=== PATIENT | female | born 1975 | race Caucasian/White ===

== ENCOUNTER 2016-03-10 19:49 | Emergency (ER) | payer OTHER, SELFPAY ==
[2016-03-10] MEDS ORDERED: NORCO, ANEXSIA 5/325MG TABLET (HYDROcodone/ACETAMINOPHEN) As Ordered ONE (21:07)
--- NOTE | 2016-03-10 22:10 | REPUSA ---
CLINICAL HISTORY: Abscess. TECHNIQUE: Realtime sonographic images are obtained through the left groin. FINDINGS: In the region of clinical concern left groin, note is made of a fluid collecting measuring 2.3 x 1.7 x 1.3 cm which may represent an abscess. No additional abnormalities are noted. No evidence of solid mass. IMPRESSION: Fluid collection in the left groin suspicious for an abscess. Consider correlation with CT with cont rast as clinically warranted. Thank you for your kind referral of this patient. We appreciate the opportunity to participate in thi s patient's care.
[2016-03-10] MEDS ORDERED: LIDOCAINE 1% MDV 20ML VIAL As Ordered ONE (22:31)
[2016-03-10] MEDS ORDERED: BACTRIM 160MG/800MG DS TAB As Ordered ONE (23:14)
--- NOTE | 2016-03-10 23:25 | EDDOCDS ---
Nurse's Notes [facility] Name: Onelia Oakes Age: 41 yrs Sex: Female : 1975 Arrival Date: 03/10/2016 Time: 19:49 Bed I7 / 29 Private MD: Jorge Alberto Hoskins Diagnosis: Cutaneous abscess of groin-LEFT Presentation: 03/10 19:55 Presenting complaint: Patient states: abscess near groin x 10 days. Painful. Adult ttb Sepsis Screening: The patient does not have new or worsening altered mentation. Patient's respiratory rate is less than 22. Systolic blood pressure is greater than 100. Patient has a qSOFA score of 0- Negative Sepsis Screen. Suicide/Homicide risk assessment- the patient denies having any suicidal and/or homicidal ideations and does not present with any other emotional, behavioral or mental health complaints. 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 Transition of care: patient was not received from another setting of care. 19:55 Acuity: LAURA Level 4 ttb 19:55 Method Of Arrival: Walkin/Carried/Asstd ttb Triage Assessment: 19:58 General: Appears in no apparent distress, well nourished, well groomed, Behavior is ttb appropriate for age, cooperative, pleasant. Pain: Location: groin 11/04. HIV screening NA for this visit Offered previously. Neurological: Level of Consciousness is awake, alert. Cardiovascular: Chest pain is denied. Respiratory: No deficits noted. Airway is patent Respiratory effort is even, unlabored, Denies cough, shortness of breath. GI: Denies nausea, vomiting, pain. : [facility]. Dx BV Denies burning with urination, urinary frequency, urgency. Derm: Skin is normal, pt stated abscess to left groin. Injury Description: No known injury. 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 metronidazole 500 mg Oral tab 2 times per day (Last dose: 03/10/2016 17:30) - PMHx: heart condition as child -- resolved; - PSHx: Tonsillectomy; Adenoidectomy; - Social history: Smoking status: Patient uses tobacco products, current every day smoker. Patient/guardian denies using alcohol, street drugs, No barriers to communication noted, The patient speaks fluent Yemeni, Speaks appropriately for age. - Family history: Not pertinent. - : The pt / caregiver states he / she is not on anticoagulants. Home medication list is obtained from the patient. - Exposure Risk Screening:: None identified. Screenin:11 Screening information is obtained from the patient. Fall risk: No risks identified. ms18 Assistance ADL's: requires no assistance with activities of daily living. Abuse/DV Screen: The patient / caregiver reports he/she is: not in a situation that causes fear, pain or injury. Nutritional screening: No deficits noted. Advance Directives: There is no living will. home support is adequate. Assessment: 21:11 General: Appears in no apparent distress, uncomfortable, Behavior is appropriate for ms18 age, cooperative. Pain: Location: left femoral area and left inguinal area Pain currently is 9 out of 10 on a pain scale. Neurological: No deficits noted. Respiratory: No deficits noted. Derm: Skin is pink, warm & dry. pt has a small bump to her L inguinal area. no redness noted. 23:22 General: Appears in no apparent distress, Behavior is cooperative. Pain: Location: left af2 inguinal area and left femoral area Pain currently is 3 out of 10 on a pain scale. Neurological: Level of Consciousness is awake, alert. Respiratory: No deficits noted. Derm: No deficits noted. Vital Signs: 19:52 BP 128 / 79; Pulse 91; Resp 18; Temp 98.9; Pulse Ox 100% ; Weight 63.5 kg; Height 5 ft. elp 1 in. (154.94 cm); Pain 9/10; 23:23 BP 111 / 71 RA Sitting; Pulse 75; Resp 18 S; Temp 97.2(O); Pulse Ox 97% on R/A; Pain af2 3/10; 19:52 Body Mass Index 26.45 (63.50 kg, 154.94 cm) [facility] Vitals: 19:50 Log In Time: March 10, 2016 at 19:48. [facility] ED Course: 19:50 Patient visited by Nani Rhoades PCA. [facility] 19:50 Jorge Alberto Hoskins is Private Physician. el 19:50 Jorge Alberto Hoskins is Private Physician. elp 19:50 Patient moved to Waiting elp 19:51 Patient visited by Nani Rhoades PCA. elp 19:51 Patient moved to Pre RCE elp 19:57 Triage Initiated ttb 20:00 Patient visited by Jane Bowles, SAMPSON. ttb 20:54 Patient moved to Triage 2 jmb 20:59 Bowen Demarco R[facility]-C [facility] ck7 20:59 Santosh Howard DO is Attending Physician. ck7 20:59 Patient visited by Bowen Demarco RPA-C. ck7 21:02 Patient visited by Teresa Espino PCA. rs6 21:09 Patient moved to TR2 jmb 21:11 The patient / caregiver is instructed regarding the plan of care and ED course. Patient ms18 has correct armband on for positive identification. Property :Personal belongings accompany Pt. 21:11 No IV's were initiated during this patient's visit. No procedures done that require ms18 assistance. 21:41 Patient visited by Bowen Demarco RPA-C. ck7 22:13 Patient visited by Bowen Demarco RPA-C. ck7 22:25 [facility] Payment Agreement was scanned into [employer] and attached to record. ks16 22:25 [employer] Returned. EDMS 22:29 Patient moved to I ajs 22:44 Patient visited by Bowen Demarco RPA-C. ck7 23:12 Wound Culture - Most Extremities Sent. af2 23:14 Patient visited by Bowen Demarco RPA-C. ck7 23:15 Jorge Alberto Hoskins is Referral Physician. ck7 23:18 Patient visited by Olamide Williamson,SAMPSON. af2 Administered Medications: 21:08 Drug: HYDROcodone-acetaminophen 1 tabs [hydrocodone 5 mg-acetaminophen 325 mg tablet (1 ms18 tabs)] Route: PO; 22:39 Follow up: Response: No Adverse Reaction ms18 23:12 Drug: Lidocaine 10 ml [lidocaine 10 mg/mL (1 %) injection solution (10 mL)] {Note: af2 admin by PA.} Route: Infiltration; 23:15 Drug: Trimethoprim-Sulfamethoxazole 1 tabs [sulfamethoxazole 800 mg-trimethoprim 160 mg af2 tablet (1 tabs)] Route: PO; Order Results: Radiology Order: US Abd Limited Test: US Abd Limited REASON FOR EXAMINATION: R/O LEFT GROIN ABSCESS V LYMPH NODE; ; CLINICAL HISTORY: Abscess.; ; TECHNIQUE: Realtime sonographic images are obtained through the left groin.; ; FINDINGS:; In the region of clinical concern left groin, note is made of a fluid collecting measuring 2.3 x 1.7; x 1.3 cm which may represent an abscess.; ; No additional abnormalities are noted. No evidence of solid mass.; ; IMPRESSION:; Fluid collection in the left groin suspicious for an abscess. Consider correlation with CT with cont; rast as clinically warranted.; ; ; Thank you for your kind referral of this patient. We appreciate the opportunity to participate in thi; s patient's care.; ; Outcome: 23:16 Discharge ordered by Provider. ck7 23:23 Discharge Assessment: Patient awake, alert and oriented x 3. No cognitive and/or af2 functional deficits noted. Patient verbalized understanding of disposition instructions. patient administered narcotics - no. The following High Risk Discharge criteria are identified: None. Discharged to home ambulatory. Condition: stable. Discharge instructions given to patient, Instructed on discharge instructions, follow up and referral plans. medication usage, no driving heavy equipment, no drinking with medication, Demonstrated understanding of instructions, medications, Pt was receptive of discharge instructions/ teaching. No special radiology studies were completed. 23:25 Patient left the ED. af2 Signatures: Dispatcher [employer] EDTX Esther Chamorro Christopher, LISA-C RPA-Cck7 Jane Bowles RN RN Nani Leon, CIRCUIT RECORDER CIRCUIT RECORDER Chemo LorenzRN RN Bernie Alejandra,SAMPSON RN ms18 Teresa Espino, CIRCUIT RECORDER CIRCUIT RECORDER rs6 Olamide Williamson RN RN af2 Deloris Barajas, Reg Reg ks16 MTDD
--- NOTE | 2016-03-10 23:25 | EDDOCDS ---
Physician Documentation [facility] Name: Onelia Oakes Age: 41 yrs Sex: Female : 1975 Arrival Date: 03/10/2016 Time: 19:49 Bed I7 / 29 Private MD: Jorge Alberto Hoskins Disposition: 03/10/16 23:16 Discharged to Home/Self Care. Impression: Cutaneous abscess of groin - LEFT. - Condition is Stable. - Discharge Instructions: Abscess. - Prescriptions for [place] 5- 325 mg Oral Tablet - take 1 tablet by ORAL route every 6 hours As needed MDD: 4 tabs; 6 tablet. Bactrim DS 800- 160 mg Oral Tablet - take 1 tablet by ORAL route every 12 hours for 10 days; 20 tablet. - Medication Reconciliation, Local Pharmacy Hours form. - Follow up: Jorge Alberto Hoskins; When: 2 - 3 days; Reason: Recheck today's complaints, Continuance of care. - Problem is new. - Symptoms have improved. - Notes: USE MEDICATIONS INSTRUTCED, FOLLOW UP WITH YOUR PRIMARY DOCTOR, RETURN TO THE ER IF THE SYMPTOMS WORSEN OR BECOME CONCERNING Historical: - Allergies: PENICILLINS; - Home Meds: 1. metronidazole 500 mg Oral tab 2 times per day (Last dose: 03/10/2016 17:30) - PMHx: heart condition as child -- resolved; - PSHx: Tonsillectomy; Adenoidectomy; - Social history: Smoking status: Patient uses tobacco products, current every day smoker. Patient/guardian denies using alcohol, street drugs, No barriers to communication noted, The patient speaks fluent Indonesian, Speaks appropriately for age. - Family history: Not pertinent. - : The pt / caregiver states he / she is not on anticoagulants. Home medication list is obtained from the patient. - Exposure Risk Screening:: None identified. 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 1 in. (154.94 cm); Pain 9/10; 23:23 BP 111 / 71 RA Sitting; Pulse 75; Resp 18 S; Temp 97.2(O); Pulse Ox 97% on R/A; Pain af2 3/10; 19:52 Body Mass Index 26.45 (63.50 kg, 154.94 cm) elp Procedures: 23:14 I & D: Incision and drainage was performed for an abscess of the groin Prepped with ck7 CHLORPREP. Anesthetized with 1 ml's 1% Lidocaine. Incised with 18 G NEEDLE. Drained moderate amount purulent fluid. bloody fluid. the patient tolerated the procedure well. MDM: 21:05 HYDROcodone-acetaminophen 5 mg-325 mg 1 tabs PO once ordered. ck7 21:06 [employer] Ordered. EDMS 22:24 Financial registration complete. [email or web address] 22:25 [facility] Payment Agreement was scanned into [employer] and attached to record. ks16 22:28 [employer] Reviewed. ck7 22:37 Lidocaine 10 mg/mL (1 %) 10 ml Infiltration once; to bedside ordered. ck7 23:10 Trimethoprim-Sulfamethoxazole 160 mg-800 mg (DS) 1 tabs PO once ordered. ck7 23:12 Wound Culture - Most Extremities Ordered. EDMS Administered Medications: 21:08 Drug: HYDROcodone-acetaminophen 1 tabs [hydrocodone 5 mg-acetaminophen 325 mg tablet (1 ms18 tabs)] Route: PO; 22:39 Follow up: Response: No Adverse Reaction ms18 23:12 Drug: Lidocaine 10 ml [lidocaine 10 mg/mL (1 %) injection solution (10 mL)] {Note: af2 admin by PA.} Route: Infiltration; 23:15 Drug: Trimethoprim-Sulfamethoxazole 1 tabs [sulfamethoxazole 800 mg-trimethoprim 160 mg af2 tablet (1 tabs)] Route: PO; Signatures: Dispatcher [employer] EDMS Bowen Demarco, RPA-C RPA-Cck7 Jane Bowles RN RN ttb Bernie Lancaster RN RN ms18 Olamide Williamson RN RN af2 Deloris Barajas, Reg Reg ks16 The chart was reviewed and I authenticate all verbal orders and agree with the evaluation and treatment provided.Attachments: 22:25 [facility] Payment Agreement [email or web address] MTDD
--- NOTE | 2016-03-13 00:25 | EDDOCDS ---
Physician Documentation [facility] Name: Onelia Oakes Age: 41 yrs Sex: Female : 1975 Arrival Date: 03/10/2016 Time: 19:49 Bed I7 / 29 Private MD: Jorge Alberto Hoskins Disposition: 03/10/16 23:16 Discharged to Home/Self Care. Impression: Cutaneous abscess of groin - LEFT. - Condition is Stable. - Discharge Instructions: Abscess. - Prescriptions for [place] 5- 325 mg Oral Tablet - take 1 tablet by ORAL route every 6 hours As needed MDD: 4 tabs; 6 tablet. Bactrim DS 800- 160 mg Oral Tablet - take 1 tablet by ORAL route every 12 hours for 10 days; 20 tablet. - Medication Reconciliation, Local Pharmacy Hours form. - Follow up: Jorge Alberto Hoskins; When: 2 - 3 days; Reason: Recheck today's complaints, Continuance of care. - Problem is new. - Symptoms have improved. - Notes: USE MEDICATIONS INSTRUTCED, FOLLOW UP WITH YOUR PRIMARY DOCTOR, RETURN TO THE ER IF THE SYMPTOMS WORSEN OR BECOME CONCERNING Historical: - Allergies: PENICILLINS; - Home Meds: 1. metronidazole 500 mg Oral tab 2 times per day (Last dose: 03/10/2016 17:30) - PMHx: heart condition as child -- resolved; - PSHx: Tonsillectomy; Adenoidectomy; - Social history: Smoking status: Patient uses tobacco products, current every day smoker. Patient/guardian denies using alcohol, street drugs, No barriers to communication noted, The patient speaks fluent Frisian, Speaks appropriately for age. - Family history: Not pertinent. - : The pt / caregiver states he / she is not on anticoagulants. Home medication list is obtained from the patient. - Exposure Risk Screening:: None identified. 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 1 in. (154.94 cm); Pain 9/10; 23:23 BP 111 / 71 RA Sitting; Pulse 75; Resp 18 S; Temp 97.2(O); Pulse Ox 97% on R/A; Pain af2 310; 19:52 Body Mass Index 26.45 (63.50 kg, 154.94 cm) elp Procedures: 23:14 I & D: Incision and drainage was performed for an abscess of the groin Prepped with ck7 CHLORPREP. Anesthetized with 1 ml's 1% Lidocaine. Incised with 18 G NEEDLE. Drained moderate amount purulent fluid. bloody fluid. the patient tolerated the procedure well. MDM: 21:05 HYDROcodone-acetaminophen 5 mg-325 mg 1 tabs PO once ordered. ck7 21:06 US Abd [employer] Ordered. EDMS 22:24 Financial registration complete. [email or web address] 22:25 [facility] Payment Agreement was scanned into [employer] and attached to record. ks16 22:28 [employer] Reviewed. ck7 22:37 Lidocaine 10 mg/mL (1 %) 10 ml Infiltration once; to bedside ordered. ck7 23:10 Trimethoprim-Sulfamethoxazole 160 mg-800 mg (DS) 1 tabs PO once ordered. ck7 23:12 Wound Culture - Most Extremities Ordered. EDMS 03/11 08:05 T-Sheet-- Draft Copy was scanned into [employer] and attached to record. [facility] Administered Medications: 03/10 21:08 Drug: HYDROcodone-acetaminophen 1 tabs [hydrocodone 5 mg-acetaminophen 325 mg tablet (1 ms18 tabs)] Route: PO; 22:39 Follow up: Response: No Adverse Reaction ms18 23:12 Drug: Lidocaine 10 ml [lidocaine 10 mg/mL (1 %) injection solution (10 mL)] {Note: af2 admin by PA.} Route: Infiltration; 23:15 Drug: Trimethoprim-Sulfamethoxazole 1 tabs [sulfamethoxazole 800 mg-trimethoprim 160 mg af2 tablet (1 tabs)] Route: PO; Signatures: Dispatcher [employer] EDNC Bowen Demarco, NITA RPA-Cck7 Jane Bowles RN RN ttb Bernie Lancaster RN RN ms18 Olamide Williamson RN RN af2 Deloris Barajas, Reg Reg [facility] Gissel Brand [facility] The chart was reviewed and I authenticate all verbal orders and agree with the evaluation and treatment provided.Attachments: 22:25 [facility] Payment Agreement [email or web address] 03/11 08:05 T-Sheet-- Draft Copy se Chart Complete MTDD
--- NOTE | 2016-03-13 00:25 | EDDOCDS ---
Physician Documentation [facility] Name: Onelia Oakes Age: 41 yrs Sex: Female : 1975 Arrival Date: 03/10/2016 Time: 19:49 Bed I7 / 29 Private MD: Jorge Alberto Hoskins Disposition: 03/10/16 23:16 Discharged to Home/Self Care. Impression: Cutaneous abscess of groin - LEFT. - Condition is Stable. - Discharge Instructions: Abscess. - Prescriptions for [place] 5- 325 mg Oral Tablet - take 1 tablet by ORAL route every 6 hours As needed MDD: 4 tabs; 6 tablet. Bactrim DS 800- 160 mg Oral Tablet - take 1 tablet by ORAL route every 12 hours for 10 days; 20 tablet. - Medication Reconciliation, Local Pharmacy Hours form. - Follow up: Jorge Alberto Hoskins; When: 2 - 3 days; Reason: Recheck today's complaints, Continuance of care. - Problem is new. - Symptoms have improved. - Notes: USE MEDICATIONS INSTRUTCED, FOLLOW UP WITH YOUR PRIMARY DOCTOR, RETURN TO THE ER IF THE SYMPTOMS WORSEN OR BECOME CONCERNING Historical: - Allergies: PENICILLINS; - Home Meds: 1. metronidazole 500 mg Oral tab 2 times per day (Last dose: 03/10/2016 17:30) - PMHx: heart condition as child -- resolved; - PSHx: Tonsillectomy; Adenoidectomy; - Social history: Smoking status: Patient uses tobacco products, current every day smoker. Patient/guardian denies using alcohol, street drugs, No barriers to communication noted, The patient speaks fluent Czech, Speaks appropriately for age. - Family history: Not pertinent. - : The pt / caregiver states he / she is not on anticoagulants. Home medication list is obtained from the patient. - Exposure Risk Screening:: None identified. 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 1 in. (154.94 cm); Pain 9/10; 23:23 BP 111 / 71 RA Sitting; Pulse 75; Resp 18 S; Temp 97.2(O); Pulse Ox 97% on R/A; Pain af2 310; 19:52 Body Mass Index 26.45 (63.50 kg, 154.94 cm) elp Procedures: 23:14 I & D: Incision and drainage was performed for an abscess of the groin Prepped with ck7 CHLORPREP. Anesthetized with 1 ml's 1% Lidocaine. Incised with 18 G NEEDLE. Drained moderate amount purulent fluid. bloody fluid. the patient tolerated the procedure well. MDM: 21:05 HYDROcodone-acetaminophen 5 mg-325 mg 1 tabs PO once ordered. ck7 21:06 [employer] Abd [employer] Ordered. EDMS 22:24 Financial registration complete. [email or web address] 22:25 [facility] Payment Agreement was scanned into [employer] and attached to record. ks16 22:28 [employer] Reviewed. ck7 22:37 Lidocaine 10 mg/mL (1 %) 10 ml Infiltration once; to bedside ordered. ck7 23:10 Trimethoprim-Sulfamethoxazole 160 mg-800 mg (DS) 1 tabs PO once ordered. ck7 23:12 Wound Culture - Most Extremities Ordered. EDMS 03/11 08:05 T-Sheet-- Draft Copy was scanned into [employer] and attached to record. [facility] Administered Medications: 03/10 21:08 Drug: HYDROcodone-acetaminophen 1 tabs [hydrocodone 5 mg-acetaminophen 325 mg tablet (1 ms18 tabs)] Route: PO; 22:39 Follow up: Response: No Adverse Reaction ms18 23:12 Drug: Lidocaine 10 ml [lidocaine 10 mg/mL (1 %) injection solution (10 mL)] {Note: af2 admin by PA.} Route: Infiltration; 23:15 Drug: Trimethoprim-Sulfamethoxazole 1 tabs [sulfamethoxazole 800 mg-trimethoprim 160 mg af2 tablet (1 tabs)] Route: PO; Signatures: Dispatcher [employer] EDCA Bowen Demarco, NITA RPA-Cck7 Jane Bowles RN RN ttb Bernie Lancaster RN RN ms18 Olamide Williamson RN RN af2 Deloris Barajas, Reg Reg [facility] Gissel Brand [facility] The chart was reviewed and I authenticate all verbal orders and agree with the evaluation and treatment provided.Attachments: 22:25 [facility] Payment Agreement [email or web address] 03/11 08:05 T-Sheet-- Draft Copy se Chart Complete MTDD
--- NOTE | 2016-03-13 00:25 | EDDOCDS ---
Nurse's Notes [facility] Name: Onelia Oakes Age: 41 yrs Sex: Female : 1975 Arrival Date: 03/10/2016 Time: 19:49 Bed I7 / 29 Private MD: Jorge Alberto Hoskins Diagnosis: Cutaneous abscess of groin-LEFT Presentation: 03/10 19:55 Presenting complaint: Patient states: abscess near groin x 10 days. Painful. Adult ttb Sepsis Screening: The patient does not have new or worsening altered mentation. Patient's respiratory rate is less than 22. Systolic blood pressure is greater than 100. Patient has a qSOFA score of 0- Negative Sepsis Screen. Suicide/Homicide risk assessment- the patient denies having any suicidal and/or homicidal ideations and does not present with any other emotional, behavioral or mental health complaints. Status: Patient is not a service advocate contact or dependent. Transition of care: patient was not received from another setting of care. 19:55 Acuity: LAURA Level 4 ttb 19:55 Method Of Arrival: Walkin/Carried/Asstd ttb Triage Assessment: 19:58 General: Appears in no apparent distress, well nourished, well groomed, Behavior is ttb appropriate for age, cooperative, pleasant. Pain: Location: groin 11/04. HIV screening NA for this visit Offered previously. Neurological: Level of Consciousness is awake, alert. Cardiovascular: Chest pain is denied. Respiratory: No deficits noted. Airway is patent Respiratory effort is even, unlabored, Denies cough, shortness of breath. GI: Denies nausea, vomiting, pain. : [facility]. Dx BV Denies burning with urination, urinary frequency, urgency. Derm: Skin is normal, pt stated abscess to left groin. Injury Description: No known injury. 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 metronidazole 500 mg Oral tab 2 times per day (Last dose: 03/10/2016 17:30) - PMHx: heart condition as child -- resolved; - PSHx: Tonsillectomy; Adenoidectomy; - Social history: Smoking status: Patient uses tobacco products, current every day smoker. Patient/guardian denies using alcohol, street drugs, No barriers to communication noted, The patient speaks fluent Hong Konger, Speaks appropriately for age. - Family history: Not pertinent. - : The pt / caregiver states he / she is not on anticoagulants. Home medication list is obtained from the patient. - Exposure Risk Screening:: None identified. Screenin:11 Screening information is obtained from the patient. Fall risk: No risks identified. ms18 Assistance ADL's: requires no assistance with activities of daily living. Abuse/DV Screen: The patient / caregiver reports he/she is: not in a situation that causes fear, pain or injury. Nutritional screening: No deficits noted. Advance Directives: There is no living will. home support is adequate. Assessment: 21:11 General: Appears in no apparent distress, uncomfortable, Behavior is appropriate for ms18 age, cooperative. Pain: Location: left femoral area and left inguinal area Pain currently is 9 out of 10 on a pain scale. Neurological: No deficits noted. Respiratory: No deficits noted. Derm: Skin is pink, warm & dry. pt has a small bump to her L inguinal area. no redness noted. 23:22 General: Appears in no apparent distress, Behavior is cooperative. Pain: Location: left af2 inguinal area and left femoral area Pain currently is 3 out of 10 on a pain scale. Neurological: Level of Consciousness is awake, alert. Respiratory: No deficits noted. Derm: No deficits noted. Vital Signs: 19:52 BP 128 / 79; Pulse 91; Resp 18; Temp 98.9; Pulse Ox 100% ; Weight 63.5 kg; Height 5 ft. elp 1 in. (154.94 cm); Pain 9/10; 23:23 BP 111 / 71 RA Sitting; Pulse 75; Resp 18 S; Temp 97.2(O); Pulse Ox 97% on R/A; Pain af2 3/10; 19:52 Body Mass Index 26.45 (63.50 kg, 154.94 cm) [facility] Vitals: 19:50 Log In Time: March 10, 2016 at 19:48. [facility] ED Course: 19:50 Patient visited by Nani Rhoades PCA. [facility] 19:50 Jorge Alberto Hoskins is Private Physician. el 19:50 Jorge Alberto Hoskins is Private Physician. elp 19:50 Patient moved to Waiting elp 19:51 Patient visited by Nani Rhoades PCA. elp 19:51 Patient moved to Pre RCE elp 19:57 Triage Initiated ttb 20:00 Patient visited by Jane Bowles RN. ttb 20:54 Patient moved to Triage 2 jmb 20:59 [facility] ck[facility] 20:59 Santosh Howard DO is Attending Physician. ck7 20:59 Patient visited by Bowen Demarco RPA-C. ck7 21:02 Patient visited by Teresa Espino PCA. rs6 21:09 Patient moved to TR2 jmb 21:11 The patient / caregiver is instructed regarding the plan of care and ED course. Patient ms18 has correct armband on for positive identification. Property :Personal belongings accompany Pt. 21:11 No IV's were initiated during this patient's visit. No procedures done that require ms18 assistance. 21:41 Patient visited by Bowen Demarco RPA-C. ck7 22:13 Patient visited by Bowen Demarco RPA-C. ck7 22:25 [facility] Payment Agreement was scanned into [employer] and attached to record. ks16 22:25 [employer] Returned. EDMS 22:29 Patient moved to I ajs 22:44 Patient visited by Bowen Demarco RPA-C. ck7 23:12 Wound Culture - Most Extremities Sent. af2 23:14 Patient visited by Bowen Demarco RPA-C. ck7 23:15 Jorge Alberto Hoskins is Referral Physician. ck7 23:18 Patient visited by Olamide Williamson,SAMPSON. af2 03/11 08:05 T-Sheet-- Draft Copy was scanned into [employer] and attached to record. [facility] Administered Medications: 03/10 21:08 Drug: HYDROcodone-acetaminophen 1 tabs [hydrocodone 5 mg-acetaminophen 325 mg tablet (1 ms18 tabs)] Route: PO; 22:39 Follow up: Response: No Adverse Reaction ms18 23:12 Drug: Lidocaine 10 ml [lidocaine 10 mg/mL (1 %) injection solution (10 mL)] {Note: af2 admin by PA.} Route: Infiltration; 23:15 Drug: Trimethoprim-Sulfamethoxazole 1 tabs [sulfamethoxazole 800 mg-trimethoprim 160 mg af2 tablet (1 tabs)] Route: PO; Order Results: Radiology Order: US Abd Limited Test: US Abd Limited REASON FOR EXAMINATION: R/O LEFT GROIN ABSCESS V LYMPH NODE; ; CLINICAL HISTORY: Abscess.; ; TECHNIQUE: Realtime sonographic images are obtained through the left groin.; ; FINDINGS:; In the region of clinical concern left groin, note is made of a fluid collecting measuring 2.3 x 1.7; x 1.3 cm which may represent an abscess.; ; No additional abnormalities are noted. No evidence of solid mass.; ; IMPRESSION:; Fluid collection in the left groin suspicious for an abscess. Consider correlation with CT with cont; rast as clinically warranted.; ; ; Thank you for your kind referral of this patient. We appreciate the opportunity to participate in thi; s patient's care.; ; Outcome: 23:16 Discharge ordered by Provider. ck7 23:23 Discharge Assessment: Patient awake, alert and oriented x 3. No cognitive and/or af2 functional deficits noted. Patient verbalized understanding of disposition instructions. patient administered narcotics - no. The following High Risk Discharge criteria are identified: None. Discharged to home ambulatory. Condition: stable. Discharge instructions given to patient, Instructed on discharge instructions, follow up and referral plans. medication usage, no driving heavy equipment, no drinking with medication, Demonstrated understanding of instructions, medications, Pt was receptive of discharge instructions/ teaching. No special radiology studies were completed. 23:25 Patient left the ED. af2 Signatures: Dispatcher [employer] EDMS Esther Chamorro Christopher, RPA-C RPA-Cck7 Jane Bowles, RN RN Nani Leno, JEWELRY SALES REPRESENTATIVE JEWELRY SALES REPRESENTATIVE Chemo Lorenz RN RN jmb Smith, Mallory, RN RN ms18 Teresa Espino, JEWELRY SALES REPRESENTATIVE JEWELRY SALES REPRESENTATIVE rs6 Olamide Williamson RN RN af2 Deloris Barajas, Reg Reg ks16 Gissel Brand Chart Complete MTDD
== END 2016-03-10 23:25 | disposition home or self-care (01) ==
LOC: M ED 19:49
DX: L02.214 Cutaneous abscess of groin (principal); Z90.89 Acquired absence of other organs; F17.200 Nicotine dependence, unspecified, uncomplicated; Z79.899 Other long term (current) drug therapy; Z88.0 Allergy status to penicillin

== ENCOUNTER 2018-03-25 08:47 | Emergency (ER) | payer OTHER, SELFPAY ==
[~2018-03-25] VITALS: Ht 154.9 cm; Wt 64.2 kg
[2018-03-25] MEDS ORDERED: PANTOPRAZOLE 40MG INJ (PROTONIX) (C9113) IV ONE (09:30)
[2018-03-25] MEDS ORDERED: NS 1,000 ML IV ONE (09:30)
[2018-03-25 09:46] LABS: BASO # 0.1 10^3/uL (0.0-0.2); BASO % 0.4 % (0.0-1.0); EOS # 0.5 10^3/uL (0.0-0.50); EOS % 2.5 % (0.0-3.0); HEMATOCRIT 46.8 % (36.0-47.0); HEMOGLOBIN 15.5 g/dl (12.0-15.5); LYMPH # 2.3 10^3/uL (1.5-4.5); LYMPH % 12.5 % (24.0-44.0); MEAN CORPUSCULAR HEMOGLOBIN 31.4 pg (27.0-33.0); MEAN CORPUSCULAR HGB CONC 33.1 g/dl (32.0-36.5); MEAN CORPUSCULAR VOLUME 94.9 fl (80.0-96.0); MONO # 1.3 10^3/uL (0.0-0.8); MONO % 6.7 % (0.0-5.0); NEUTROPHILS # 14.4 10^3/uL (1.8-7.7); NEUTROPHILS % 77.4 % (36.0-66.0); PLATELET COUNT, AUTOMATED 278 10^3/uL (150-450); RED BLOOD COUNT 4.93 10^6/uL (4.00-5.40); WHITE BLOOD COUNT 18.6 10^3/uL (4.0-10.0)
[2018-03-25 10:15] LABS: ALBUMIN 3.7 GM/DL (3.2-5.2); ALT/SGPT 26 U/L (12-78); BILIRUBIN,DIRECT 0.1 MG/DL (0.0-0.2); BILIRUBIN,TOTAL 0.5 MG/DL (0.2-1.0); BLOOD UREA NITROGEN 10 MG/DL (7-18); CALCIUM LEVEL 8.3 MG/DL (8.5-10.1); CARBON DIOXIDE LEVEL 28 MEQ/L (21-32); CHLORIDE LEVEL 105 MEQ/L (98-107); CREATININE FOR GFR 0.73 MG/DL (0.55-1.30); GLOMERULAR FILTRATION RATE > 60.0 (>58); GLUCOSE, FASTING 86 MG/DL (70-100); LIPASE 651 U/L (73-393); POTASSIUM SERUM 3.8 MEQ/L (3.5-5.1); SODIUM LEVEL 140 MEQ/L (136-145); TOTAL PROTEIN 7.1 GM/DL (6.4-8.2)
[2018-03-25] MEDS ORDERED: ISOVUE-370 76% 100ML VIAL (Q9967) As Ordered ONE (10:21)
--- NOTE | 2018-03-25 10:49 | REP ---
Clinical: Acute periumbilical pain. Technique: Axial contrast enhanced images from the lung bases to the pubic symphysis with coronal and sagittal re-formations. 100 ml Isovue 370 intravenous contrast material administered without complication. Findings: Mucosal thickening and pericolonic stranding involves the mid to distal transverse colon with associated diverticula is most compatible with acute diverticulitis. No bowel obstruction. No free air to suggest perforation. No drainable collection/abscess. Diffuse diverticulosis noted throughout the colon. Normal terminal ileum and appendix identified in the right lower quadrant. Liver demonstrates innumerable sub centimeter hypodensities likely representing cysts. Spleen, pancreas, gallbladder, bilateral adrenal glands and kidneys are normal. Pelvis demonstrates normal bladder and age-appropriate uterus/adnexa. Mild/moderate retroperitoneal adenopathy is nonspecific but may warrant followup. Abdominal aorta and vasculature without aneurysm. Musculoskeletal structures are intact. Impression: 1. Findings most compatible with diverticulitis involving the mid to distal transverse colon. Follow-up colonoscopy may be warranted to exclude further pathology. Diffuse diverticular disease noted throughout the colon. 2. Mildly prominent adenopathy primarily involving the retroperitoneum is nonspecific and may warrant followup examination. 3. Innumerable sub centimeter hepatic hypodensities are too small to characterize. Findings likely represent cysts and may warrant ultrasound follow-up. Electronically Signed by Missael Cunningham MD 03/25/2018 10:40 A
[2018-03-25] MEDS ORDERED: FLAG500T PO (10:56)
[2018-03-25] MEDS ORDERED: CIPR-249 PO (10:56)
[2018-03-25] MEDS ORDERED: ONDA4TAB6 PO (10:58)
[2018-03-25 11:02] VITALS: BP 104/70
--- NOTE | 2018-03-26 13:41 | ED PDOC ---
Post-Departure Follow-Up dr padron faxed formal reading of ct abd/p for fu Raven Gross MD Mar 26, 2018 13:41
== END 2018-03-25 11:06 | disposition home or self-care (01) ==
LOC: M ED 08:47
DX: K57.32 Diverticulitis of large intestine without perforation or abscess without bleeding (principal); R74.8 Abnormal levels of other serum enzymes; Z88.0 Allergy status to penicillin; F17.210 Nicotine dependence, cigarettes, uncomplicated
CPT/HCPCS: 74177; 80048; 80076; 81001; 81025; 83690; 85025; 87086; 96361; 96374; 99284; C9113; Q9967

== ENCOUNTER → 2018-04-08 | Outpatient (CLI) | payer OTHER ==
[~2018-04-08] MED LIST: CIPR-249 PO; FLAG500T PO; ONDA4TAB6 PO
[2018-04-08 09:26] LABS: HEMATOCRIT 46.8 % (36.0-47.0); HEMOGLOBIN 15.7 g/dl (12.0-15.5); MEAN CORPUSCULAR HEMOGLOBIN 31.8 pg (27.0-33.0); MEAN CORPUSCULAR HGB CONC 33.5 g/dl (32.0-36.5); MEAN CORPUSCULAR VOLUME 94.9 fl (80.0-96.0); PLATELET COUNT, AUTOMATED 298 10^3/uL (150-450); RED BLOOD COUNT 4.93 10^6/uL (4.00-5.40); WHITE BLOOD COUNT 10.6 10^3/uL (4.0-10.0)
--- NOTE | 2018-04-08 09:44 | ECGEPIP ---
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
[2018-04-08 09:59] LABS: ALBUMIN 3.6 GM/DL (3.2-5.2); ALT/SGPT 28 U/L (12-78); BILIRUBIN,TOTAL 0.2 MG/DL (0.2-1.0); BLOOD UREA NITROGEN 15 MG/DL (7-18); CALCIUM LEVEL 8.4 MG/DL (8.5-10.1); CARBON DIOXIDE LEVEL 29 MEQ/L (21-32); CHLORIDE LEVEL 106 MEQ/L (98-107); CHOLESTEROL LEVEL 194 MG/DL (<200); CHOLESTEROL RISK RATIO 4.974 (<5); CREATININE FOR GFR 0.74 MG/DL (0.55-1.30); GLOMERULAR FILTRATION RATE > 60.0 (>58); GLUCOSE, FASTING 88 MG/DL (70-100); HDL CHOLESTEROL 39 MG/DL (>40); LDL CHOLESTEROL 132 MG/DL (<100); NON-HDL-C 155 MG/DL; POTASSIUM SERUM 4.5 MEQ/L (3.5-5.1); SODIUM LEVEL 139 MEQ/L (136-145); TOTAL PROTEIN 6.7 GM/DL (6.4-8.2); TRIGLYCERIDES LEVEL 113 MG/DL (<150)
--- NOTE | 2018-04-08 10:37 | REP ---
Chest two views HISTORY: COPD Comparison: 03/12/2011 The lungs are clear. The heart is normal in size. The pulmonary vasculature is normal in appearance. The bony structure is intact. IMPRESSION: No acute disease. Electronically Signed by John Villalpando MD 04/08/2018 10:29 A
[2018-04-08 10:57] LABS: HEMOGLOBIN A1c 5.4 %
== END ==
LOC: M LAB 08:29
PROVIDERS: ATTEND Family Medicine
DX: J44.9 Chronic obstructive pulmonary disease, unspecified (principal)

== ENCOUNTER 2019-07-28 06:14 | Emergency (ER) | payer OTHER ==
[~2019-07-28] VITALS: Ht 157.5 cm; Wt 63.6 kg
[2019-07-28] MEDS ORDERED: PANTOPRAZOLE 40MG VIAL (C9113 PER 1) IV ONE (06:45)
[2019-07-28] MEDS ORDERED: NS 1,000 ML IV ONE (06:45)
[2019-07-28 06:50] LABS: BASO # 0.1 10^3/uL (0.0-0.2); BASO % 0.6 % (0.0-1.0); EOS # 0.4 10^3/uL (0.0-0.5); EOS % 3.8 % (0.0-3.0); HEMATOCRIT 45.9 % (36.0-47.0); HEMOGLOBIN 15.6 g/dl (12.0-15.5); LYMPH # 2.1 10^3/uL (1.5-5.0); LYMPH % 22.2 % (24.0-44.0); MEAN CORPUSCULAR HEMOGLOBIN 31.3 pg (27.0-33.0); MEAN CORPUSCULAR VOLUME 92.2 fl (80.0-96.0); MONO # 0.9 10^3/uL (0.0-0.8); MONO % 9.2 % (0.0-5.0); NEUTROPHILS % 63.6 % (36.0-66.0); PLATELET COUNT, AUTOMATED 283 10^3/uL (150-450); RED BLOOD COUNT 4.98 10^6/uL (4.00-5.40); WHITE BLOOD COUNT 9.5 10^3/uL (4.0-10.0)
[2019-07-28 07:15] LABS: BLOOD UREA NITROGEN 20 MG/DL (7-18); CALCIUM LEVEL 8.1 MG/DL (8.5-10.1); CARBON DIOXIDE LEVEL 24 MEQ/L (21-32); CHLORIDE LEVEL 110 MEQ/L (98-107); CREATININE FOR GFR 0.71 MG/DL (0.55-1.30); GLOMERULAR FILTRATION RATE > 60.0 (>58); GLUCOSE, FASTING 102 MG/DL (70-100); SODIUM LEVEL 139 MEQ/L (136-145)
--- NOTE | 2019-07-28 07:22 | REP ---
Clinical: Acute chest pain . Comparison: 04/08/2018 . Findings: The mediastinum and cardiac silhouette are stable and within normal limits for portable technique. The lung gutierrez are clear without acute consolidation, effusion, or pneumothorax. Skeletal structures are intact. Impression: No acute cardiopulmonary process appreciated. Electronically Signed by Missael Cunningham MD 07/28/2019 07:14 A
[2019-07-28 08:15] VITALS: BP 103/71
[2019-07-28] MEDS ORDERED: PROT1TAB2 PO (08:16)
[2019-07-28] MEDS ORDERED: ONDA4TAB6 PO (08:16)
--- NOTE | 2019-07-28 18:38 | ECGEPIP ---
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
== END 2019-07-28 08:50 | disposition home or self-care (01) ==
LOC: M ED 06:14
DX: R11.2 Nausea with vomiting, unspecified (principal); R07.9 Chest pain, unspecified; I45.10 Unspecified right bundle-branch block
CPT/HCPCS: 71045; 80048; 84484; 85025; 85379; 93005; 93041; 94760; 96361; 96374; 99285; C9113

== ENCOUNTER 2020-07-02 16:45 | Emergency (ER) | payer OTHER ==
[~2020-07-02] VITALS: Ht 157.5 cm; Wt 68.7 kg
[~2020-07-02 16:45] MED LIST changes: +PROT1TAB2 PO
[2020-07-02] MEDS ORDERED: PANTOPRAZOLE 40MG VIAL (C9113 PER 1) IV ONE (17:10)
[2020-07-02] MEDS ORDERED: NS 500 ML IV ONE (17:10)
[2020-07-02] MEDS ORDERED: GI COCKTAIL 50ML BTL(HYOSCYAMINE/MAALOX/LIDOCAINE VISCOUS)(1:3:1) PO ONE (17:10)
[2020-07-02 17:39] LABS: BASO # 0.1 10^3/uL (0.0-0.2); BASO % 0.5 % (0.0-1.0); EOS # 0.4 10^3/uL (0.0-0.5); EOS % 2.2 % (0.0-3.0); HEMATOCRIT 46.6 % (36.0-47.0); HEMOGLOBIN 15.8 g/dl (12.0-15.5); LYMPH # 3.3 10^3/uL (1.5-5.0); LYMPH % 19.2 % (24.0-44.0); MEAN CORPUSCULAR HEMOGLOBIN 31.7 pg (27.0-33.0); MEAN CORPUSCULAR HGB CONC 33.9 g/dl (32.0-36.5); MEAN CORPUSCULAR VOLUME 93.6 fl (80.0-96.0); MONO # 1.4 10^3/uL (0.0-0.8); MONO % 8.3 % (2.0-8.0); NEUTROPHILS # 11.9 10^3/uL (1.5-8.5); NEUTROPHILS % 69.4 % (36.0-66.0); PLATELET COUNT, AUTOMATED 268 10^3/uL (150-450); RED BLOOD COUNT 4.98 10^6/uL (4.00-5.40); WHITE BLOOD COUNT 17.1 10^3/uL (4.0-10.0)
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
[2020-07-02 18:04] LABS: ALBUMIN 3.8 GM/DL (3.2-5.2); ALT/SGPT 28 U/L (12-78); BILIRUBIN,DIRECT 0.2 MG/DL (0.0-0.2); BILIRUBIN,TOTAL 0.5 MG/DL (0.2-1.0); BLOOD UREA NITROGEN 13 MG/DL (7-18); CALCIUM LEVEL 8.7 MG/DL (8.5-10.1); CARBON DIOXIDE LEVEL 24 MEQ/L (21-32); CHLORIDE LEVEL 109 MEQ/L (98-107); CK-MB VALUE MASS 1.1 NG/ML (<3.6); CPK CREATINE PHOSPHOKINASE 65 U/L (26-192); CREATININE FOR GFR 0.67 MG/DL (0.55-1.30); GLOMERULAR FILTRATION RATE > 60.0 (>58); GLUCOSE, FASTING 84 MG/DL (70-100); LIPASE 179 U/L (73-393); MB/CK RELATIVE INDEX 1.69 (< OR =4); POTASSIUM SERUM 3.8 MEQ/L (3.5-5.1); SODIUM LEVEL 139 MEQ/L (136-145); TOTAL PROTEIN 7.1 GM/DL (6.4-8.2); TROPONIN I < 0.02 NG/ML (< 0.10)
[2020-07-02] MEDS ORDERED: ISOVUE-370 76% 100ML VIAL As Ordered ONE (18:10)
--- NOTE | 2020-07-02 19:08 | REPVR ---
PROCEDURE INFORMATION: Exam: CT Abdomen And Pelvis With Contrast Exam date and time: 07/02/2020 6:26 PM Age: 45 years old Clinical indication: Abdominal pain; Localized; Upper; Additional info: Upper abdominal pain; Leukocytosis; R/O diverticulitis TECHNIQUE: Imaging protocol: Computed tomography of the abdomen and pelvis with contrast. Radiation optimization: All CT scans at this facility use at least one of these dose optimization techniques: automated exposure control; mA and/or kV adjustment per patient size (includes targeted exams where dose is matched to clinical indication); or iterative reconstruction. Contrast material: ISOVUE 370; Contrast volume: 100 ml; Contrast route: INTRAVENOUS (IV); COMPARISON: CT ABD/PEL W/IV CONTRAST ONLY 03/25/2018 10:21 AM FINDINGS: Liver: Multiple hypodense lesions in the liver with the largest measuring 8 mm in the right hepatic lobe, most likely a cyst. Other hypodense lesions are too small to be characterized. Gallbladder and bile ducts: Normal. No calcified stones. No ductal dilation. Pancreas: Normal. No ductal dilation. Spleen: Normal. No splenomegaly. Adrenal glands: Normal. No mass. Kidneys and ureters: Normal. No hydronephrosis. Stomach and bowel: Unremarkable. No obstruction. No mucosal thickening. Appendix: No evidence of appendicitis. Intraperitoneal space: Unremarkable. No free air. No significant fluid collection. Vasculature: Unremarkable. No abdominal aortic aneurysm. Lymph nodes: Unremarkable. No enlarged lymph nodes. Urinary bladder: Unremarkable as visualized. Reproductive: Unremarkable as visualized. Bones/joints: Unremarkable. No acute fracture. Soft tissues: Unremarkable. IMPRESSION: No acute abdominal or pelvic abnormality. Electronically signed by: Elvis Anderson On 07/02/2020 19:08:43 PM
[2020-07-02] MEDS ORDERED: CARA1TAB6 PO (19:40)
[2020-07-02] MEDS ORDERED: PROT1TAB2 PO (19:40)
[2020-07-02 19:45] VITALS: BP 105/71
--- NOTE | 2020-07-03 10:02 | ECGEPIP ---
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
== END 2020-07-02 19:55 | disposition home or self-care (01) ==
LOC: M ED 16:45
DX: I45.19 Other right bundle-branch block (principal); K29.70 Gastritis, unspecified, without bleeding; F17.200 Nicotine dependence, unspecified, uncomplicated; Z88.0 Allergy status to penicillin
CPT/HCPCS: 74019; 74177; 80048; 80076; 82550; 82553; 83690; 84484; 85025; 93005; 93041; 96361; 96374; 99284; C9113; Q9967

== ENCOUNTER → 2020-08-16 | Outpatient (CLI) | payer OTHER ==
[~2020-08-16] MED LIST changes: +CARA1TAB6 PO; +E-Z-GAS II EFFERVESCENT PACKET (SODIUM BICARB./CITRIC ACID/SIMETHICONE) As Ordered ONE; +E-Z-HD 98% w/w 340GM SUSP BTL As Ordered ONE; +E-Z-PAQUE 96% w/w SUSP 176GM BTL As Ordered ONE
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
== END ==
LOC: M RAD 07:34
PROVIDERS: ATTEND Family Medicine
DX: K28.9 Gastrojejunal ulcer, unspecified as acute or chronic, without hemorrhage or perforation (principal); R10.9 Unspecified abdominal pain; K44.9 Diaphragmatic hernia without obstruction or gangrene

== ENCOUNTER → 2020-08-26 | Outpatient (CLI) | payer OTHER ==
[~2020-08-26] MED LIST changes: -E-Z-GAS II EFFERVESCENT PACKET (SODIUM BICARB./CITRIC ACID/SIMETHICONE) As Ordered ONE; -E-Z-HD 98% w/w 340GM SUSP BTL As Ordered ONE; -E-Z-PAQUE 96% w/w SUSP 176GM BTL As Ordered ONE
[2020-08-26 09:40] LABS: HEMATOCRIT 50.5 % (36.0-47.0); HEMOGLOBIN 16.6 g/dl (12.0-15.5); MEAN CORPUSCULAR HEMOGLOBIN 31.3 pg (27.0-33.0); MEAN CORPUSCULAR HGB CONC 32.9 g/dl (32.0-36.5); MEAN CORPUSCULAR VOLUME 95.3 fl (80.0-96.0); PLATELET COUNT, AUTOMATED 292 10^3/uL (150-450); WHITE BLOOD COUNT 11.4 10^3/uL (4.0-10.0)
[2020-08-26 10:25] LABS: ALT/SGPT 48 U/L (12-78); BILIRUBIN,TOTAL 0.6 MG/DL (0.2-1.0); BLOOD UREA NITROGEN 16 MG/DL (7-18); CALCIUM LEVEL 8.5 MG/DL (8.5-10.1); CARBON DIOXIDE LEVEL 28 MEQ/L (21-32); CHLORIDE LEVEL 105 MEQ/L (98-107); CHOLESTEROL LEVEL 220 MG/DL (<200); CHOLESTEROL RISK RATIO 5.238 (<5); CREATININE FOR GFR 0.72 MG/DL (0.55-1.30); GLOMERULAR FILTRATION RATE > 60.0 (>58); GLUCOSE, FASTING 82 MG/DL (70-100); HDL CHOLESTEROL 42 MG/DL (>40); LDL CHOLESTEROL 154 MG/DL (<100); NON-HDL-C 178 MG/DL; POTASSIUM SERUM 4.1 MEQ/L (3.5-5.1); SODIUM LEVEL 138 MEQ/L (136-145); TOTAL 25(OH) VITAMIN D 27.2 NG/ML (30.0-100.0); TOTAL PROTEIN 7.4 GM/DL (6.4-8.2); TRIGLYCERIDES LEVEL 119 MG/DL (<150)
== END ==
LOC: M LAB 08:21
PROVIDERS: ATTEND Family Medicine
DX: D64.9 Anemia, unspecified (principal); R53.83 Other fatigue; E03.9 Hypothyroidism, unspecified

== ENCOUNTER 2021-02-07 13:13 | Emergency (ER) | payer OTHER ==
[~2021-02-07] VITALS: Ht 157.5 cm; Wt 65.5 kg
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
[2021-02-07] MEDS ORDERED: ACETAMINOPHEN 325 MG TAB PO ONE (17:15)
[2021-02-07] MEDS ORDERED: KETOROLAC TROMETHAMINE 10 MG TAB PO ONE (18:05)
[2021-02-07] MEDS ORDERED: KETO10TAB PO (18:07)
[2021-02-07] MEDS ORDERED: METH-1164 PO (18:09)
[2021-02-07 18:20] VITALS: BP 121/73
== END 2021-02-07 18:20 | disposition home or self-care (01) ==
LOC: M ED 13:13
DX: S33.5XXA Sprain of ligaments of lumbar spine, initial encounter (principal); M25.511 Pain in right shoulder; V43.52XA Car driver injured in collision with other type car in traffic accident, initial encounter; Y92.89 Other specified places as the place of occurrence of the external cause; Y93.89 Activity, other specified; Y99.9 Unspecified external cause status; F17.200 Nicotine dependence, unspecified, uncomplicated; Z88.0 Allergy status to penicillin

== ENCOUNTER 2021-04-06 05:46 | Emergency (ER) | payer OTHER, SELFPAY ==
[~2021-04-06] VITALS: Ht 157.5 cm; Wt 68.9 kg
[~2021-04-06 05:46] MED LIST changes: +KETO10TAB PO; +METH-1164 PO
[2021-04-06] MEDS ORDERED: NS 1,000 ML IV ONE (06:35)
[2021-04-06] MEDS ORDERED: KETOROLAC 30 MG/ML 1ML VIAL IV ONE (06:35)
[2021-04-06] MEDS ORDERED: ONDANSETRON 4MG/2ML VIAL IV ONE (06:35)
[2021-04-06 07:17] LABS: BASO # 0.1 10^3/uL (0.0-0.2); BASO % 0.3 % (0.0-1.0); EOS # 0.2 10^3/uL (0.0-0.5); EOS % 1.3 % (0.0-3.0); HEMOGLOBIN 17.1 g/dl (12.0-15.5); LYMPH % 10.7 % (24.0-44.0); MEAN CORPUSCULAR HEMOGLOBIN 31.5 pg (27.0-33.0); MEAN CORPUSCULAR HGB CONC 33.5 g/dl (32.0-36.5); MEAN CORPUSCULAR VOLUME 93.9 fl (80.0-96.0); MONO % 8.6 % (2.0-8.0); NEUTROPHILS # 14.9 10^3/uL (1.5-8.5); NEUTROPHILS % 78.5 % (36.0-66.0); PLATELET COUNT, AUTOMATED 288 10^3/uL (150-450); RED BLOOD COUNT 5.43 10^6/uL (4.00-5.40); WHITE BLOOD COUNT 18.9 10^3/uL (4.0-10.0)
[2021-04-06] MEDS ORDERED: ISOVUE-370 76% 100ML VIAL As Ordered ONE (07:18)
[2021-04-06 07:28] LABS: ALBUMIN 3.6 GM/DL (3.2-5.2); ALT/SGPT 31 U/L (12-78); BILIRUBIN,DIRECT 0.2 MG/DL (0.0-0.2); BILIRUBIN,TOTAL 0.8 MG/DL (0.2-1.0); BLOOD UREA NITROGEN 14 MG/DL (7-18); CALCIUM LEVEL 8.5 MG/DL (8.5-10.1); CARBON DIOXIDE LEVEL 28 MEQ/L (21-32); CHLORIDE LEVEL 105 MEQ/L (98-107); GLOMERULAR FILTRATION RATE > 60.0 (>58); GLUCOSE, FASTING 90 MG/DL (70-100); LIPASE 1183 U/L (73-393); POTASSIUM SERUM 4.3 MEQ/L (3.5-5.1); SODIUM LEVEL 138 MEQ/L (136-145); TOTAL PROTEIN 6.9 GM/DL (6.4-8.2)
[2021-04-06 07:41] LABS: MONO # 1.6 10^3/uL (0.0-0.8)
[2021-04-06] MEDS ORDERED: metroNIDAZOLE (FLAGYL) 500MG TABLET PO ONE (09:00)
[2021-04-06] MEDS ORDERED: CIPROFLOXACIN 500MG TABLET PO ONE (09:00)
[2021-04-06] MEDS ORDERED: METR-265 PO (09:07)
[2021-04-06] MEDS ORDERED: REGL10TA6 PO (09:07)
[2021-04-06] MEDS ORDERED: CIPR-249 PO (09:07)
[2021-04-06 09:15] VITALS: BP 119/74
== END 2021-04-06 09:33 | disposition home or self-care (01) ==
LOC: M ED 05:46
DX: K57.32 Diverticulitis of large intestine without perforation or abscess without bleeding (principal); F17.200 Nicotine dependence, unspecified, uncomplicated; Z79.899 Other long term (current) drug therapy; Z88.0 Allergy status to penicillin
CPT/HCPCS: 74177; 80048; 80076; 81001; 83690; 84702; 85025; 96361; 96374; 96375; 99284; J1885; J2405; Q9967

== ENCOUNTER 2021-05-28 07:31 | Emergency (ER) | payer BC, SELFPAY ==
[~2021-05-28] VITALS: Ht 157.5 cm; Wt 67.7 kg
[~2021-05-28 07:31] MED LIST changes: +METR-265 PO; +REGL10TA6 PO
[2021-05-28 07:36] VITALS: BP 102/76
[2021-05-28] MEDS ORDERED: IBUP80TA PO (07:59)
[2021-05-28] MEDS ORDERED: DOXY100C3 PO (07:59)
== END 2021-05-28 08:41 | disposition home or self-care (01) ==
LOC: M ED 07:31
DX: L02.416 Cutaneous abscess of left lower limb (principal); K52.9 Noninfective gastroenteritis and colitis, unspecified; K57.92 Diverticulitis of intestine, part unspecified, without perforation or abscess without bleeding; F17.200 Nicotine dependence, unspecified, uncomplicated; Z88.0 Allergy status to penicillin

== ENCOUNTER 2021-10-23 08:35 | Emergency (ER) | payer BC ==
[~2021-10-23] VITALS: Ht 157.5 cm; Wt 67.3 kg
[~2021-10-23 08:35] MED LIST changes: +DOXY100C3 PO; +IBUP80TA PO
[2021-10-23 08:36] VITALS: BP 108/74
[2021-10-23 09:24] LABS: BASO % 0.4 % (0.0-1.0); EOS # 0.5 10^3/uL (0.0-0.5); EOS % 4.5 % (0.0-3.0); HEMATOCRIT 50.4 % (36.0-47.0); LYMPH # 2.1 10^3/uL (1.5-5.0); LYMPH % 19.5 % (24.0-44.0); MEAN CORPUSCULAR HEMOGLOBIN 31.2 pg (27.0-33.0); MEAN CORPUSCULAR HGB CONC 33.7 g/dl (32.0-36.5); MEAN CORPUSCULAR VOLUME 92.5 fl (80.0-96.0); MONO # 0.8 10^3/uL (0.0-0.8); MONO % 7.1 % (2.0-8.0); NEUTROPHILS # 7.3 10^3/uL (1.5-8.5); PLATELET COUNT, AUTOMATED 272 10^3/uL (150-450); RED BLOOD COUNT 5.45 10^6/uL (4.00-5.40); WHITE BLOOD COUNT 10.8 10^3/uL (4.0-10.0)
[2021-10-23 09:55] LABS: ALT/SGPT 42 U/L (12-78); BILIRUBIN,DIRECT 0.3 MG/DL (0.0-0.2); BILIRUBIN,TOTAL 0.5 MG/DL (0.2-1.0); BLOOD UREA NITROGEN 16 MG/DL (7-18); CALCIUM LEVEL 9.2 MG/DL (8.5-10.1); CARBON DIOXIDE LEVEL 24 MEQ/L (21-32); CHLORIDE LEVEL 108 MEQ/L (98-107); CREATININE FOR GFR 0.76 MG/DL (0.55-1.30); GLOMERULAR FILTRATION RATE > 60.0 (>58); GLUCOSE, FASTING 91 MG/DL (70-100); LIPASE 955 U/L (73-393); POTASSIUM SERUM 4.2 MEQ/L (3.5-5.1); SODIUM LEVEL 138 MEQ/L (136-145); TOTAL PROTEIN 7.3 GM/DL (6.4-8.2)
[2021-10-24] MEDS ORDERED: IBUP1TAB7 PO (09:28)
== END 2021-10-23 14:33 | disposition left against medical advice (07) ==
LOC: M ED 08:35
DX: Z53.21 Procedure and treatment not carried out due to patient leaving prior to being seen by health care provider (principal)

== ENCOUNTER 2021-10-24 06:12 | Observation (INO) | payer BC ==
[~2021-10-24] VITALS: Ht 157.5 cm; Wt 72.8 kg
[2021-10-24 07:39] LABS: BASO # 0.1 10^3/uL (0.0-0.2); BASO % 0.5 % (0.0-1.0); EOS # 0.5 10^3/uL (0.0-0.5); EOS % 4.3 % (0.0-3.0); HEMATOCRIT 50.6 % (36.0-47.0); HEMOGLOBIN 17.2 g/dl (12.0-15.5); LYMPH # 2.5 10^3/uL (1.5-5.0); LYMPH % 22.7 % (24.0-44.0); MEAN CORPUSCULAR HEMOGLOBIN 31.3 pg (27.0-33.0); MONO # 0.9 10^3/uL (0.0-0.8); MONO % 7.8 % (2.0-8.0); NEUTROPHILS # 7.1 10^3/uL (1.5-8.5); NEUTROPHILS % 64.3 % (36.0-66.0); PLATELET COUNT, AUTOMATED 252 10^3/uL (150-450)
[2021-10-24 08:15] LABS: ALBUMIN 3.9 GM/DL (3.2-5.2); ALT/SGPT 41 U/L (12-78); BILIRUBIN,DIRECT 0.1 MG/DL (0.0-0.2); BILIRUBIN,TOTAL 0.4 MG/DL (0.2-1.0); BLOOD UREA NITROGEN 18 MG/DL (7-18); CALCIUM LEVEL 9.2 MG/DL (8.5-10.1); CARBON DIOXIDE LEVEL 25 MEQ/L (21-32); CHLORIDE LEVEL 109 MEQ/L (98-107); CREATININE FOR GFR 0.81 MG/DL (0.55-1.30); GLOMERULAR FILTRATION RATE > 60.0 (>58); GLUCOSE, FASTING 101 MG/DL (70-100); LIPASE 2130 U/L (73-393); POTASSIUM SERUM 4.2 MEQ/L (3.5-5.1); SODIUM LEVEL 140 MEQ/L (136-145); TOTAL PROTEIN 7.2 GM/DL (6.4-8.2)
[2021-10-24] MEDS ORDERED: NS 1,000 ML IV ONE (08:25)
[2021-10-24] MEDS ORDERED: ISOVUE-370 76% 100ML VIAL As Ordered ONE (08:36)
[2021-10-24] MEDS ORDERED: CIPROFLOXACIN 400 MG in IV 1 EA IV ONE (09:25)
[2021-10-24] MEDS ORDERED: metroNIDAZOLE 500 MG in IV 1 EA IV ONE (09:25)
[2021-10-24] MEDS ORDERED: IBUP1TAB7 PO (09:28)
[2021-10-24] MEDS ORDERED: HOME MED LIST COMPLETE! XX SCH (09:30)
[2021-10-24] MEDS ORDERED: ACETAMINOPHEN TAB 650MG DOSE (2X325MG) PO PRN (10:25)
[2021-10-24] MEDS ORDERED: MORPHINE 2 MG/ML 1ML VIAL IV PRN ×2 (10:30)
[2021-10-24] MEDS ORDERED: ONDANSETRON 4MG 2ML VIAL IV PRN (10:30)
[2021-10-24 11:11] LABS: INR 0.99; PROTHROMBIN TIME 13.5 SECONDS (12.7-14.5)
[2021-10-24 11:12] LABS: PARTIAL THROMBOPLASTIN TIME 34.9 SECONDS (25.9-37.0)
[2021-10-24 11:13] LABS: RSV AMPLIFICATION NEGATIVE (NEGATIVE)
[2021-10-24] MEDS ORDERED: MIRALAX *UNIT DOSE* 17GM PACKET PO PRN (11:30)
[2021-10-24 11:43] LABS: CK-MB VALUE MASS < 1.0 NG/ML (<3.6); CPK CREATINE PHOSPHOKINASE 29 U/L (26-192); MB/CK RELATIVE INDEX 3.45 (< OR =4)
[2021-10-24] MEDS: NS 1,000 ML IV SCH ×2 (11:54→23:34)
[2021-10-24] MEDS: LACTOBACILLUS ACIDOPHILUS CAP (BACID) PO SCH ×2 (11:58→19:19)
[2021-10-24] MEDS: NICOTINE 21MG/24HR 1 EA TRANSDERMAL TD SCH (11:59)
[2021-10-24] MEDS: ENOXAPARIN 40MG/0.4ML SYRINGE (J1650 PER 10MG) SC SCH (11:59)
[2021-10-24] MEDS: DOCUSATE SODIUM 100MG CAPSULE PO SCH ×2 (11:59→20:39)
[2021-10-24] MEDS: metroNIDAZOLE 500 MG in IV 1 EA IV SCH (19:19)
[2021-10-24] MEDS ORDERED: SENNA 8.6 MG TAB (SENOKOT) PO SCH (21:00)
[2021-10-24] MEDS: CIPROFLOXACIN 400 MG in IV 1 EA IV SCH (22:19)
[2021-10-25] MEDS: metroNIDAZOLE 500 MG in IV 1 EA IV SCH (04:00)
[2021-10-25 06:14] LABS: HEMATOCRIT 46.3 % (36.0-47.0); HEMOGLOBIN 15.6 g/dl (12.0-15.5); MEAN CORPUSCULAR HEMOGLOBIN 30.5 pg (27.0-33.0); MEAN CORPUSCULAR HGB CONC 33.7 g/dl (32.0-36.5); MEAN CORPUSCULAR VOLUME 90.6 fl (80.0-96.0); PLATELET COUNT, AUTOMATED 244 10^3/uL (150-450); RED BLOOD COUNT 5.11 10^6/uL (4.00-5.40); WHITE BLOOD COUNT 11.9 10^3/uL (4.0-10.0)
[2021-10-25] MEDS: NS 1,000 ML IV SCH (06:14)
[2021-10-25 07:04] LABS: ALBUMIN 3.1 GM/DL (3.2-5.2); ALT/SGPT 32 U/L (12-78); BILIRUBIN,TOTAL 0.5 MG/DL (0.2-1.0); BLOOD UREA NITROGEN 9 MG/DL (7-18); CALCIUM LEVEL 8.2 MG/DL (8.5-10.1); CARBON DIOXIDE LEVEL 22 MEQ/L (21-32); CHLORIDE LEVEL 112 MEQ/L (98-107); CREATININE FOR GFR 0.62 MG/DL (0.55-1.30); GLOMERULAR FILTRATION RATE > 60.0 (>58); GLUCOSE, FASTING 98 MG/DL (70-100); LIPASE 409 U/L (73-393); POTASSIUM SERUM 3.9 MEQ/L (3.5-5.1); SODIUM LEVEL 141 MEQ/L (136-145); TOTAL PROTEIN 6.3 GM/DL (6.4-8.2)
[2021-10-25] MEDS: LACTOBACILLUS ACIDOPHILUS CAP (BACID) PO SCH (09:48)
[2021-10-25] MEDS: DOCUSATE SODIUM 100MG CAPSULE PO SCH (09:48)
[2021-10-25] MEDS: CIPROFLOXACIN 400 MG in IV 1 EA IV SCH (09:49)
[2021-10-25] MEDS: NICOTINE 21MG/24HR 1 EA TRANSDERMAL TD SCH (09:49)
[2021-10-25] MEDS: ENOXAPARIN 40MG/0.4ML SYRINGE (J1650 PER 10MG) SC SCH (09:49)
[2021-10-25 10:40] VITALS: BP 102/68
[2021-10-25] MEDS ORDERED: PANTOPRAZOLE 40MG TAB (PROTONIX) PO SCH (11:37)
[2021-10-25 13:00] VITALS: BP 109/63
[2021-10-25] MEDS ORDERED: COLA100C5 PO (13:54)
[2021-10-25] MEDS ORDERED: ACET1TAB55 PO (13:54)
[2021-10-25] MEDS ORDERED: CIPR250T3 PO (13:54)
[2021-10-25] MEDS ORDERED: METR-265 PO (13:54)
[2021-10-25] MEDS ORDERED: PANT40TA29 PO (13:54)
[2021-10-25] MEDS ORDERED: RISATAB3 PO (13:54)
== END 2021-10-25 15:15 | disposition home or self-care (01) ==
LOC: M ED 06:12 → M ED INP 06:13 → ENRESERV 10-25 08:30 → M 4MAIN 10-25 10:12
PROVIDERS: ADMIT Internal Medicine; ATTEND Internal Medicine
DX: K57.32 Diverticulitis of large intestine without perforation or abscess without bleeding (principal); R74.8 Abnormal levels of other serum enzymes; K59.00 Constipation, unspecified; F17.210 Nicotine dependence, cigarettes, uncomplicated; Z79.899 Other long term (current) drug therapy; Z88.0 Allergy status to penicillin; M54.50 Low back pain, unspecified; M54.2 Cervicalgia
CPT/HCPCS: 36415; 74177; 80048; 80053; 80076; 82550; 82553; 83605; 83690; 84484; 85025; 85027; 85610; 85730; 87631; 93005; 96361; 96365; 96366; 96367; 96372; 96375; 99285; J0744; J1650; Q9967

== ENCOUNTER 2022-03-15 12:34 | Emergency (ER) | payer BC ==
[~2022-03-15] VITALS: Ht 157.5 cm; Wt 71.2 kg
[~2022-03-15 12:34] MED LIST changes: +ACET1TAB55 PO; +CIPR250T3 PO; +COLA100C5 PO; +IBUP1TAB7 PO; +PANT40TA29 PO; +RISATAB3 PO
[2022-03-15 14:37] LABS: BASO % 0.3 % (0.0-1.0); EOS # 0.3 10^3/uL (0.0-0.5); EOS % 1.9 % (0.0-3.0); HEMATOCRIT 47.9 % (36.0-47.0); HEMOGLOBIN 15.7 g/dl (12.0-15.5); LYMPH # 2.6 10^3/uL (1.5-5.0); LYMPH % 18.8 % (24.0-44.0); MEAN CORPUSCULAR HEMOGLOBIN 30.7 pg (27.0-33.0); MEAN CORPUSCULAR HGB CONC 32.8 g/dl (32.0-36.5); MEAN CORPUSCULAR VOLUME 93.7 fl (80.0-96.0); MONO % 7.5 % (2.0-8.0); NEUTROPHILS # 9.8 10^3/uL (1.5-8.5); NEUTROPHILS % 71.3 % (36.0-66.0); PLATELET COUNT, AUTOMATED 274 10^3/uL (150-450); RED BLOOD COUNT 5.11 10^6/uL (4.00-5.40); WHITE BLOOD COUNT 13.7 10^3/uL (4.0-10.0)
[2022-03-15] MEDS ORDERED: ISOVUE-370 76% 100ML VIAL As Ordered ONE (14:54)
[2022-03-15 14:59] LABS: ALBUMIN 3.8 G/DL (3.2-5.2); BILIRUBIN,DIRECT 0.2 MG/DL (<0.4); BILIRUBIN,TOTAL 0.6 MG/DL (0.3-1.2); TOTAL PROTEIN 7.1 G/DL (5.7-8.2)
[2022-03-15] MEDS ORDERED: CIPROFLOXACIN 400 MG in IV 1 EA IV ONE (16:10)
[2022-03-15] MEDS ORDERED: metroNIDAZOLE (FLAGYL) 500MG TABLET PO ONE (16:10)
[2022-03-15] MEDS ORDERED: NS 1,000 ML IV ONE (16:10)
[2022-03-15] MEDS ORDERED: METR-265 PO (17:08)
[2022-03-15] MEDS ORDERED: CIPR-249 PO (17:08)
[2022-03-15 17:52] VITALS: BP 115/65
== END 2022-03-15 18:03 | disposition home or self-care (01) ==
LOC: M ED 12:34
DX: K57.32 Diverticulitis of large intestine without perforation or abscess without bleeding (principal); Z88.0 Allergy status to penicillin; Z79.2 Long term (current) use of antibiotics; Z79.899 Other long term (current) drug therapy

== ENCOUNTER 2022-06-04 06:02 | Emergency (ER) | payer BC ==
[~2022-06-04] VITALS: Ht 157.5 cm; Wt 73.7 kg
[2022-06-04] MEDS ORDERED: GI COCKTAIL 50ML BTL(HYOSCYAMINE/MAALOX/LIDOCAINE VISCOUS)(1:3:1) PO ONE (07:35)
[2022-06-04 07:43] LABS: BASO # 0.1 10^3/uL (0.0-0.2); BASO % 0.6 % (0.0-1.0); EOS # 0.3 10^3/uL (0.0-0.5); EOS % 3.2 % (0.0-3.0); HEMATOCRIT 47.7 % (36.0-47.0); HEMOGLOBIN 15.7 g/dl (12.0-15.5); LYMPH # 1.9 10^3/uL (1.5-5.0); LYMPH % 21.4 % (24.0-44.0); MEAN CORPUSCULAR HEMOGLOBIN 31.3 pg (27.0-33.0); MEAN CORPUSCULAR HGB CONC 32.9 g/dl (32.0-36.5); MONO # 0.7 10^3/uL (0.0-0.8); MONO % 7.6 % (2.0-8.0); NEUTROPHILS # 5.9 10^3/uL (1.5-8.5); NEUTROPHILS % 66.9 % (36.0-66.0); PLATELET COUNT, AUTOMATED 261 10^3/uL (150-450); RED BLOOD COUNT 5.02 10^6/uL (4.00-5.40); WHITE BLOOD COUNT 8.8 10^3/uL (4.0-10.0)
[2022-06-04] MEDS ORDERED: NS 1,000 ML IV ONE (08:05)
[2022-06-04 08:10] LABS: LIPASE 174 U/L (12-53)
[2022-06-04 08:29] LABS: ALKALINE PHOSPHATASE 64 U/L (46-116); ALT/SGPT 59 U/L (7.0-40); AST/SGOT 40 U/L (<34); BILIRUBIN,DIRECT 0.1 MG/DL (<0.4); BILIRUBIN,TOTAL 0.5 MG/DL (0.3-1.2); BLOOD UREA NITROGEN 22 MG/DL (9-23); CALCIUM LEVEL 8.4 MG/DL (8.5-10.1); CARBON DIOXIDE LEVEL 30 MMOL/L (20-31); CHLORIDE LEVEL 106 MMOL/L (98-107); GLOMERULAR FILTRATION RATE > 60.0 (>58); GLUCOSE, FASTING 89 MG/DL (60-100); POTASSIUM SERUM 4.2 MMOL/L (3.5-5.1); SODIUM LEVEL 140 MMOL/L (136-145); TOTAL PROTEIN 7.5 G/DL (5.7-8.2)
[2022-06-04 08:48] LABS: HCG, SERUM QUALITATIVE NEGATIVE (NEGATIVE)
[2022-06-04] MEDS ORDERED: ISOVUE-370 76% 100ML VIAL As Ordered ONE (09:14)
[2022-06-04] MEDS ORDERED: CIPR-249 PO (11:02)
[2022-06-04] MEDS ORDERED: METR-369 PO (11:03)
[2022-06-04 11:54] VITALS: BP 113/78
[2022-06-04 14:10] LABS: THYROID STIMULATING HORMONE > 150.000 uIU/ML (0.55-4.78)
== END 2022-06-04 11:55 | disposition home or self-care (01) ==
LOC: M ED 06:02
DX: K85.90 Acute pancreatitis without necrosis or infection, unspecified (principal); K57.92 Diverticulitis of intestine, part unspecified, without perforation or abscess without bleeding; Z87.891 Personal history of nicotine dependence; Z82.49 Family history of ischemic heart disease and other diseases of the circulatory system; Z88.0 Allergy status to penicillin
CPT/HCPCS: 74177; 80048; 80076; 83690; 84443; 84703; 85025; 93005; 96360; 99284; Q9967

== ENCOUNTER 2022-06-13 08:39 | Day surgery (SDC) | payer BC ==
[~2022-06-13] VITALS: Ht 157.5 cm; Wt 71.7 kg
[~2022-06-13 08:39] MED LIST changes: +METR-369 PO; +NS 1,000 ML IV ONE
[2022-06-13] MEDS ORDERED: LIDOCAINE 2% 100MG/5ML SDV (FOR ANES.) As Ordered ONE (10:11)
[2022-06-13] MEDS ORDERED: propofoL 200 MG/20 ML VIAL As Ordered ONE (10:11)
[2022-06-13 10:45] VITALS: BP 117/69
== END 2022-06-13 10:51 | disposition home or self-care (01) ==
LOC: M OPP 08:39
PROVIDERS: ATTEND Internal Medicine Gastroenterology
DX: Z12.11 Encounter for screening for malignant neoplasm of colon (principal); K64.0 First degree hemorrhoids; K57.30 Diverticulosis of large intestine without perforation or abscess without bleeding; K44.9 Diaphragmatic hernia without obstruction or gangrene; K29.70 Gastritis, unspecified, without bleeding; Z79.2 Long term (current) use of antibiotics; Z88.0 Allergy status to penicillin; Z87.19 Personal history of other diseases of the digestive system

== ENCOUNTER 2022-06-22 02:44 | Emergency (ER) | payer BC ==
[~2022-06-22] VITALS: Ht 157.5 cm; Wt 70.9 kg
[2022-06-22 02:44] VITALS: BP 97/60
[~2022-06-22 02:44] MED LIST changes: -NS 1,000 ML IV ONE
[2022-06-22 03:57] LABS: BASO % 0.4 % (0.0-1.0); EOS # 0.3 10^3/uL (0.0-0.5); EOS % 3.6 % (0.0-3.0); HEMATOCRIT 43.3 % (36.0-47.0); HEMOGLOBIN 14.6 g/dl (12.0-15.5); LYMPH # 1.8 10^3/uL (1.5-5.0); LYMPH % 18.6 % (24.0-44.0); MEAN CORPUSCULAR HEMOGLOBIN 31.9 pg (27.0-33.0); MEAN CORPUSCULAR HGB CONC 33.7 g/dl (32.0-36.5); MEAN CORPUSCULAR VOLUME 94.5 fl (80.0-96.0); MONO # 0.9 10^3/uL (0.0-0.8); MONO % 8.9 % (2.0-8.0); NEUTROPHILS # 6.5 10^3/uL (1.5-8.5); NEUTROPHILS % 68.2 % (36.0-66.0); PLATELET COUNT, AUTOMATED 257 10^3/uL (150-450); RED BLOOD COUNT 4.58 10^6/uL (4.00-5.40); WHITE BLOOD COUNT 9.5 10^3/uL (4.0-10.0)
[2022-06-22] MEDS ORDERED: NS 1,000 ML IV ONE (04:00)
[2022-06-22] MEDS ORDERED: ISOVUE-370 76% 100ML VIAL As Ordered ONE (04:00)
[2022-06-22] MEDS ORDERED: KETOROLAC 30 MG/ML 1ML VIAL IV ONE (04:00)
[2022-06-22 04:23] LABS: ALBUMIN 3.6 G/DL (3.2-5.2); BILIRUBIN,DIRECT 0.2 MG/DL (<0.4); BILIRUBIN,TOTAL 0.6 MG/DL (0.3-1.2); TOTAL PROTEIN 6.7 G/DL (5.7-8.2)
== END 2022-06-22 06:13 | disposition home or self-care (01) ==
LOC: M ED 02:44
DX: K57.92 Diverticulitis of intestine, part unspecified, without perforation or abscess without bleeding (principal); F17.200 Nicotine dependence, unspecified, uncomplicated; Z88.0 Allergy status to penicillin
CPT/HCPCS: 74177; 80047; 80076; 83690; 85025; 93041; 96374; 99284; J1885; Q9967

== ENCOUNTER 2022-07-10 00:59 | Emergency (ER) | payer BC ==
[~2022-07-10] VITALS: Ht 157.5 cm; Wt 71.6 kg
[2022-07-10 00:59] VITALS: BP 119/72
== END 2022-07-10 01:17 | disposition left against medical advice (07) ==
LOC: M ED 00:59
DX: Z53.21 Procedure and treatment not carried out due to patient leaving prior to being seen by health care provider (principal)

== ENCOUNTER 2022-08-24 17:35 | Emergency (ER) | payer BC ==
[~2022-08-24] VITALS: Ht 157.5 cm; Wt 65.0 kg
[2022-08-24 18:19] LABS: BASO % 0.2 % (0.0-1.0); EOS # 0.3 10^3/uL (0.0-0.5); EOS % 1.8 % (0.0-3.0); HEMATOCRIT 39.9 % (36.0-47.0); HEMOGLOBIN 13.2 g/dl (12.0-15.5); LYMPH # 1.7 10^3/uL (1.5-5.0); LYMPH % 10.8 % (24.0-44.0); MEAN CORPUSCULAR HEMOGLOBIN 31.6 pg (27.0-33.0); MEAN CORPUSCULAR HGB CONC 33.1 g/dl (32.0-36.5); MEAN CORPUSCULAR VOLUME 95.5 fl (80.0-96.0); MONO # 1.1 10^3/uL (0.0-0.8); MONO % 6.8 % (2.0-8.0); NEUTROPHILS # 12.9 10^3/uL (1.5-8.5); NEUTROPHILS % 79.7 % (36.0-66.0); PLATELET COUNT, AUTOMATED 453 10^3/uL (150-450); RED BLOOD COUNT 4.18 10^6/uL (4.00-5.40); WHITE BLOOD COUNT 16.2 10^3/uL (4.0-10.0)
[2022-08-24] MEDS ORDERED: NS 1,000 ML IV ONE ×2 (18:30→20:40)
[2022-08-24 18:33] LABS: ALBUMIN 3.2 G/DL (3.2-5.2); ALKALINE PHOSPHATASE 84 U/L (46-116); ALT/SGPT 51 U/L (7.0-40); AST/SGOT 23 U/L (<34); BILIRUBIN,DIRECT 0.2 MG/DL (<0.4); BILIRUBIN,TOTAL 0.4 MG/DL (0.3-1.2); BLOOD UREA NITROGEN 13 MG/DL (9-23); CALCIUM LEVEL 9.7 MG/DL (8.5-10.1); CARBON DIOXIDE LEVEL 28 MMOL/L (20-31); CHLORIDE LEVEL 102 MMOL/L (98-107); GLOMERULAR FILTRATION RATE > 60.0 (>58); GLUCOSE, FASTING 108 MG/DL (60-100); POTASSIUM SERUM 4.1 MMOL/L (3.5-5.1); SODIUM LEVEL 136 MMOL/L (136-145); TOTAL PROTEIN 6.7 G/DL (5.7-8.2)
[2022-08-24 18:47] LABS: INR 0.9; PROTHROMBIN TIME 12.3 SECONDS (12.5-14.5)
[2022-08-24 18:48] LABS: PARTIAL THROMBOPLASTIN TIME 28.5 SECONDS (24.8-34.2)
[2022-08-24] MEDS ORDERED: MORPHINE 2 MG/ML 1ML VIAL IV ONE (20:10)
[2022-08-24] MEDS ORDERED: LOPERAMIDE 2 MG CAPLET PO ONE (20:10)
[2022-08-24 20:34] LABS: BASO % 0.2 % (0.0-1.0); EOS # 0.2 10^3/uL (0.0-0.5); EOS % 1.4 % (0.0-3.0); HEMATOCRIT 32.8 % (36.0-47.0); LYMPH # 1.9 10^3/uL (1.5-5.0); LYMPH % 11.6 % (24.0-44.0); MEAN CORPUSCULAR HEMOGLOBIN 31.8 pg (27.0-33.0); MEAN CORPUSCULAR HGB CONC 32.9 g/dl (32.0-36.5); MEAN CORPUSCULAR VOLUME 96.5 fl (80.0-96.0); MONO # 1.2 10^3/uL (0.0-0.8); MONO % 7.5 % (2.0-8.0); NEUTROPHILS # 12.6 10^3/uL (1.5-8.5); NEUTROPHILS % 78.8 % (36.0-66.0); PLATELET COUNT, AUTOMATED 394 10^3/uL (150-450)
[2022-08-24 20:42] LABS: HEMOGLOBIN 10.8 g/dl (12.0-15.5)
[2022-08-24 21:24] VITALS: BP 115/70; TEMP 98.1; O2SAT 99
== END 2022-08-24 21:30 | disposition short-term general hospital (02) ==
LOC: M ED 17:35
DX: K92.2 Gastrointestinal hemorrhage, unspecified (principal); R10.9 Unspecified abdominal pain; D64.9 Anemia, unspecified; K94.09 Other complications of colostomy; K57.92 Diverticulitis of intestine, part unspecified, without perforation or abscess without bleeding; Z87.442 Personal history of urinary calculi; F17.200 Nicotine dependence, unspecified, uncomplicated; Z88.0 Allergy status to penicillin

== ENCOUNTER 2022-09-06 05:23 | Emergency (ER) | payer BC ==
[~2022-09-06] VITALS: Ht 157.5 cm; Wt 62.0 kg
[2022-09-06] MEDS ORDERED: NS 1,000 ML IV ONE (06:20)
[2022-09-06 06:21] LABS: BASO # 0.1 10^3/uL (0.0-0.2); BASO % 0.8 % (0.0-1.0); EOS # 0.4 10^3/uL (0.0-0.5); EOS % 2.9 % (0.0-3.0); HEMATOCRIT 48.5 % (36.0-47.0); LYMPH # 2.8 10^3/uL (1.5-5.0); LYMPH % 20.2 % (24.0-44.0); MEAN CORPUSCULAR HEMOGLOBIN 29.9 pg (27.0-33.0); MEAN CORPUSCULAR VOLUME 90.7 fl (80.0-96.0); MONO # 1.5 10^3/uL (0.0-0.8); MONO % 10.9 % (2.0-8.0); NEUTROPHILS # 8.7 10^3/uL (1.5-8.5); NEUTROPHILS % 63.3 % (36.0-66.0); PLATELET COUNT, AUTOMATED 483 10^3/uL (150-450); RED BLOOD COUNT 5.35 10^6/uL (4.00-5.40); WHITE BLOOD COUNT 13.8 10^3/uL (4.0-10.0)
[2022-09-06 06:50] LABS: CK-MB VALUE MASS < 1.0 NG/ML (<3.6)
[2022-09-06 06:51] LABS: BLOOD UREA NITROGEN 23 MG/DL (9-23); CALCIUM LEVEL 9.7 MG/DL (8.5-10.1); CARBON DIOXIDE LEVEL 21 MMOL/L (20-31); CHLORIDE LEVEL 100 MMOL/L (98-107); CPK CREATINE PHOSPHOKINASE < 15 U/L (34-145); CREATININE FOR GFR 0.85 MG/DL (0.55-1.30); GLOMERULAR FILTRATION RATE > 60.0 (>58); GLUCOSE, FASTING 113 MG/DL (60-100); POTASSIUM SERUM 4.7 MMOL/L (3.5-5.1); SODIUM LEVEL 133 MMOL/L (136-145)
[2022-09-06 06:52] LABS: RSV AMPLIFICATION NEGATIVE (NEGATIVE)
[2022-09-06 06:53] LABS: THYROID STIMULATING HORMONE 16.725 uIU/ML (0.55-4.78)
[2022-09-06 06:54] LABS: FREE T4 1.21 NG/DL (0.89-1.76)
[2022-09-06] MEDS ORDERED: PANTOPRAZOLE 40MG TAB (PROTONIX) PO ONE (07:20)
[2022-09-06] MEDS ORDERED: SUCRALFATE SUSP 1GM/10ML UD PO ONE (07:20)
[2022-09-06 07:52] LABS: CK-MB VALUE MASS < 1.0 NG/ML (<3.6)
[2022-09-06 08:00] VITALS: BP 108/79; TEMP 97.6; O2SAT 98
[2022-09-06 08:01] LABS: CPK CREATINE PHOSPHOKINASE 20 U/L (34-145)
== END 2022-09-06 08:18 | disposition home or self-care (01) ==
LOC: M ED 05:23
DX: E86.0 Dehydration (principal); Z93.3 Colostomy status; K57.92 Diverticulitis of intestine, part unspecified, without perforation or abscess without bleeding; Z87.19 Personal history of other diseases of the digestive system; Z88.0 Allergy status to penicillin; Z88.8 Allergy status to other drugs, medicaments and biological substances

== ENCOUNTER 2022-09-17 09:35 | Outpatient (CLI) | payer BC ==
[~2022-09-17] VITALS: Ht 157.5 cm; Wt 62.3 kg
[2022-09-17 09:55] VITALS: BP 108/81; O2SAT 99
[2022-09-17] MEDS ORDERED: NS 1,000 ML IV ONE (10:00)
[2022-09-17 11:01] VITALS: BP 98/64; O2SAT 100
== END 2022-09-17 11:00 ==
LOC: M INFU 09:35
PROVIDERS: ATTEND Physician Assistant Surgical
DX: E86.0 Dehydration (principal); Z88.0 Allergy status to penicillin; Z88.8 Allergy status to other drugs, medicaments and biological substances

== ENCOUNTER 2022-09-21 09:00 | Outpatient (CLI) | payer BC ==
[~2022-09-21] VITALS: Ht 157.5 cm; Wt 61.8 kg
[2022-09-21 09:00] VITALS: BP 102/72; O2SAT 97
[2022-09-21] MEDS ORDERED: NS 1,000 ML IV ONE (09:15)
[2022-09-21 10:25] VITALS: BP 117/71; O2SAT 93
== END 2022-09-21 10:25 ==
LOC: M INFU 09:00
PROVIDERS: ATTEND Physician Assistant Surgical
DX: E86.0 Dehydration (principal); Z88.0 Allergy status to penicillin; Z88.1 Allergy status to other antibiotic agents

== ENCOUNTER 2022-09-24 09:18 | Outpatient (CLI) | payer BC ==
[~2022-09-24] VITALS: Ht 152.4 cm; Wt 61.8 kg
[2022-09-24 09:20] VITALS: BP 118/74; O2SAT 98
[2022-09-24] MEDS ORDERED: NS 1,000 ML IV ONE (09:30)
[2022-09-24 10:45] VITALS: BP 112/69; O2SAT 99
== END 2022-09-24 10:45 | disposition home or self-care (01) ==
LOC: M INFU 09:18
PROVIDERS: ATTEND Physician Assistant Surgical
DX: E86.0 Dehydration (principal); Z88.0 Allergy status to penicillin; Z88.8 Allergy status to other drugs, medicaments and biological substances

== ENCOUNTER 2022-09-28 07:55 | Outpatient (CLI) | payer BC ==
[~2022-09-28] VITALS: Ht 157.5 cm; Wt 63.6 kg
[2022-09-28 08:00] VITALS: BP 129/90; O2SAT 98
[2022-09-28] MEDS ORDERED: NS 1,000 ML IV ONE (08:05)
[2022-09-28 09:25] VITALS: BP 108/67; O2SAT 98
== END 2022-09-28 09:35 | disposition home or self-care (01) ==
LOC: M INFU 07:55
PROVIDERS: ATTEND Physician Assistant Surgical
DX: E86.0 Dehydration (principal); Z88.0 Allergy status to penicillin; Z88.1 Allergy status to other antibiotic agents

== ENCOUNTER 2022-10-01 12:55 | Outpatient (CLI) | payer BC ==
[~2022-10-01] VITALS: Ht 157.5 cm; Wt 63.6 kg
[2022-10-01 12:55] VITALS: BP 135/72; O2SAT 97
[2022-10-01] MEDS: NS 1,000 ML IV ONE (13:00)
[2022-10-01 14:10] VITALS: BP 115/69; O2SAT 99
== END 2022-10-01 14:10 ==
LOC: M INFU 12:55
PROVIDERS: ATTEND Physician Assistant Surgical
DX: E86.0 Dehydration (principal); Z88.0 Allergy status to penicillin; Z88.8 Allergy status to other drugs, medicaments and biological substances

== ENCOUNTER 2022-10-05 07:56 | Outpatient (CLI) | payer BC ==
[~2022-10-05] VITALS: Ht 157.5 cm; Wt 63.6 kg
[2022-10-05 08:00] VITALS: BP 109/68; O2SAT 97
[2022-10-05] MEDS ORDERED: NS 1,000 ML IV ONE (08:10)
[2022-10-05 09:30] VITALS: BP 107/65; O2SAT 99
== END 2022-10-05 09:30 | disposition home or self-care (01) ==
LOC: M INFU 07:56
PROVIDERS: ATTEND Physician Assistant Surgical
DX: E86.0 Dehydration (principal); Z80.0 Family history of malignant neoplasm of digestive organs; Z88.1 Allergy status to other antibiotic agents

== ENCOUNTER → 2022-12-04 | Outpatient (CLI) | payer BC ==
[2022-12-04 11:54] LABS: BASO % 0.5 % (0.0-1.0); EOS # 0.3 10^3/uL (0.0-0.5); EOS % 3.7 % (0.0-3.0); HEMOGLOBIN 10.1 g/dl (12.0-15.5); LYMPH # 2.1 10^3/uL (1.5-5.0); LYMPH % 23.4 % (24.0-44.0); MEAN CORPUSCULAR HEMOGLOBIN 23.4 pg (27.0-33.0); MEAN CORPUSCULAR HGB CONC 29.7 g/dl (32.0-36.5); MEAN CORPUSCULAR VOLUME 78.9 fl (80.0-96.0); MONO # 0.8 10^3/uL (0.0-0.8); MONO % 9.5 % (2.0-8.0); NEUTROPHILS # 5.5 10^3/uL (1.5-8.5); NEUTROPHILS % 62.6 % (36.0-66.0); PLATELET COUNT, AUTOMATED 385 10^3/uL (150-450); RED BLOOD COUNT 4.31 10^6/uL (4.00-5.40); WHITE BLOOD COUNT 8.8 10^3/uL (4.0-10.0)
== END ==
LOC: M LAB 11:34
PROVIDERS: ATTEND Internal Medicine Gastroenterology
DX: K27.0 Acute peptic ulcer, site unspecified, with hemorrhage (principal)

== ENCOUNTER 2023-01-16 12:38 | Day surgery (SDC) | payer BC ==
[~2023-01-16] VITALS: Ht 157.5 cm; Wt 68.4 kg
[~2023-01-16 12:38] MED LIST changes: +IRON15CH PO; +NS 1,000 ML IV ONE; +SUCR1TAB56 PO
[2023-01-16] MEDS ORDERED: LIDOCAINE 2% 100MG/5ML SDV (FOR ANES.) As Ordered ONE (14:01)
[2023-01-16] MEDS ORDERED: fentaNYL 100 MCG/2 ML INJECTION As Ordered ONE (14:01)
[2023-01-16] MEDS ORDERED: propofoL 200 MG/20 ML VIAL As Ordered ONE (14:01)
[2023-01-16 15:41] VITALS: TEMP 98
[2023-01-16 15:59] VITALS: BP 107/75; O2SAT 98
== END 2023-01-16 16:01 | disposition home or self-care (01) ==
LOC: M OPP 12:38
PROVIDERS: ATTEND Internal Medicine Gastroenterology
DX: K44.9 Diaphragmatic hernia without obstruction or gangrene (principal); Z87.11 Personal history of peptic ulcer disease; K21.9 Gastro-esophageal reflux disease without esophagitis; Z79.899 Other long term (current) drug therapy; Z90.49 Acquired absence of other specified parts of digestive tract; Z88.8 Allergy status to other drugs, medicaments and biological substances; Z88.0 Allergy status to penicillin
CPT/HCPCS: 43239; 88305; J3010

== ENCOUNTER → 2023-07-10 | Outpatient (CLI) | payer BC ==
[~2023-07-10] MED LIST changes: -NS 1,000 ML IV ONE
== END ==
LOC: M RAD 07:35
PROVIDERS: ATTEND Internal Medicine Gastroenterology
DX: K80.20 Calculus of gallbladder without cholecystitis without obstruction (principal); K76.89 Other specified diseases of liver; R10.13 Epigastric pain

== ENCOUNTER 2024-02-17 05:08 | Emergency (ER) | payer BC ==
[~2024-02-17] VITALS: Ht 157.5 cm; Wt 72.6 kg
[~2024-02-17 05:08] MED LIST changes: +ONDA-282 PO; -ONDA4TAB6 PO
[2024-02-17 06:01] LABS: BASO % 0.4 % (0.0-1.0); EOS # 0.4 10^3/uL (0.0-0.5); EOS % 4.7 % (0.0-3.0); HEMATOCRIT 40.8 % (36.0-47.0); HEMOGLOBIN 12.7 g/dl (12.0-15.5); LYMPH % 27.4 % (24.0-44.0); MEAN CORPUSCULAR HEMOGLOBIN 27.1 pg (27.0-33.0); MEAN CORPUSCULAR HGB CONC 31.1 g/dl (32.0-36.5); MONO # 0.9 10^3/uL (0.0-0.8); MONO % 11.7 % (2.0-8.0); NEUTROPHILS # 4.1 10^3/uL (1.5-8.5); NEUTROPHILS % 55.5 % (36.0-66.0); PLATELET COUNT, AUTOMATED 314 10^3/uL (150-450); RED BLOOD COUNT 4.69 10^6/uL (4.00-5.40); WHITE BLOOD COUNT 7.4 10^3/uL (4.0-10.0)
[2024-02-17 06:16] LABS: LIPASE 178 U/L (12-53)
[2024-02-17 06:17] LABS: CK-MB VALUE MASS < 1.0 NG/ML (<3.6)
[2024-02-17 06:19] LABS: ALBUMIN 3.5 G/DL (3.2-5.2); ALKALINE PHOSPHATASE 62 U/L (35-104); ALT/SGPT 15 U/L (7.0-40); AST/SGOT 15 U/L (<34); BILIRUBIN,DIRECT 0.2 MG/DL (<0.4); BILIRUBIN,TOTAL 0.6 MG/DL (0.3-1.2); BLOOD UREA NITROGEN 14 MG/DL (9-23); CALCIUM LEVEL 8.2 MG/DL (8.5-10.1); CARBON DIOXIDE LEVEL 22 MMOL/L (20-31); CHLORIDE LEVEL 110 MMOL/L (98-107); CREATININE FOR GFR 0.66 MG/DL (0.55-1.30); GLOMERULAR FILTRATION RATE > 60.0 (>58); GLUCOSE, FASTING 109 MG/DL (60-100); POTASSIUM SERUM 3.9 MMOL/L (3.5-5.1); SODIUM LEVEL 141 MMOL/L (136-145); TOTAL PROTEIN 6.9 G/DL (5.7-8.2)
[2024-02-17 06:31] LABS: CPK CREATINE PHOSPHOKINASE 67 U/L (34-145); MB/CK RELATIVE INDEX 1.49 (< OR =4)
[2024-02-17 07:20] LABS: HCG, SERUM QUALITATIVE NEGATIVE (NEGATIVE)
[2024-02-17] MEDS: NS (Normal Saline) 0.9% 1,000 ML IV ONE (07:24)
[2024-02-17] MEDS ORDERED: ISOVUE-370 76% 100ML VIAL As Ordered ONE (07:26)
[2024-02-17 08:13] LABS: CK-MB VALUE MASS < 1.0 NG/ML (<3.6)
[2024-02-17 08:18] LABS: CPK CREATINE PHOSPHOKINASE 62 U/L (34-145); MB/CK RELATIVE INDEX 1.61 (< OR =4)
[2024-02-17 08:47] VITALS: BP 119/79; TEMP 97.9; O2SAT 99
== END 2024-02-17 08:59 | disposition home or self-care (01) ==
LOC: M ED 05:08
DX: R55 Syncope and collapse (principal); R74.8 Abnormal levels of other serum enzymes; K92.2 Gastrointestinal hemorrhage, unspecified; K57.30 Diverticulosis of large intestine without perforation or abscess without bleeding; R51.9 Headache, unspecified; M54.50 Low back pain, unspecified; Z79.899 Other long term (current) drug therapy; Z88.0 Allergy status to penicillin; Z88.1 Allergy status to other antibiotic agents; Z88.8 Allergy status to other drugs, medicaments and biological substances; Z87.891 Personal history of nicotine dependence
CPT/HCPCS: 70450; 71046; 74177; 80053; 82248; 82550; 82553; 83690; 84484; 84703; 85025; 93005; 93041; 94760; 96360; 99285; Q9967

== ENCOUNTER 2024-02-23 08:15 | Emergency (ER) | payer BC ==
[~2024-02-23] VITALS: Ht 157.5 cm; Wt 72.8 kg
[2024-02-23 10:58] VITALS: BP 115/65; TEMP 99; O2SAT 100
== END 2024-02-23 10:59 | disposition home or self-care (01) ==
LOC: M ED 08:15
DX: S80.912A Unspecified superficial injury of left knee, initial encounter (principal); Y92.9 Unspecified place or not applicable; Y93.9 Activity, unspecified; Y99.0 Civilian activity done for income or pay; W00.0XXA Fall on same level due to ice and snow, initial encounter; Z88.0 Allergy status to penicillin; Z88.1 Allergy status to other antibiotic agents; Z88.8 Allergy status to other drugs, medicaments and biological substances; Z79.899 Other long term (current) drug therapy